=== PATIENT | female | born 1995 | race Caucasian/White ===

== ENCOUNTER 2017-03-31 15:37 | Emergency (ER) | payer OTHER ==
[2017-03-31 16:07] VITALS: BP 131/71
--- NOTE | 2017-03-31 17:40 | UC ---
Respiratory Complaint HPI - HPI Summary HPI Summary: 21 y/o female presents to the urgent care c/o persistent cough for the past month. Pt was [facility] at the [facility] 2X w/in the last 3 weeks. She was Rx augmentin, Zyrtec and Mucinex. She has finished all medications and she continues w/ the cough. She has Hx of recurrent bronchitis. She still has a productive cough w/ green phlegm and nasal congestion, mild fever on and off. Pt denies SOB, wheezing, chest pain, N/V/D. Pt has not other complains. - History of Current Complaint Chief Complaint: UCRespiratory Stated Complaint: COUGH,WHEEZING,CONGESTION Time Seen by Provider: 03/31/17 17:13 Hx Obtained From: Patient Hx Last Menstrual Period: 03/04/17 ?: No Onset/Duration: Gradual Onset, Lasting Weeks Severity Initially: Moderate Severity Currently: Moderate Pain Intensity: 0 Pain Scale Used: 0-10 Numeric Character: Cough: Nonproductive - green phlegm Alleviating Factors: Nothing Associated Signs And Symptoms: Positive: Fever - on and off, Nasal Congestion - green nasal disscharge. Negative: Dyspnea, Wheezing - Risk Factors Pulmonary Embolism Risk Factors: Negative Cardiac Risk Factors: Negative Pseudomonas Risk Factors: Negative Tuberculosis Risk Factors: Negative - Allergies/Home Medications Allergies/Adverse Reactions: Allergies Allergy/AdvReac Type Severity Reaction Status Date / Time No Known Allergies Allergy Verified 03/31/17 16:07 Home Medications: Home Medications Control* 03/31/17 [History] Cetirizine* [ZyrTEC 10 MG TAB*] 10 mg PO PRN 03/31/17 [History] PMH/Surg Hx/FS Hx/Imm Hx Previously Healthy: Yes Respiratory History: Bronchitis - Surgical History Surgical History: Yes Surgery Procedure, Year, and Place: ACL RECONSTRUCTION, TONSILLECTOMY - Family History Family History: Asthma - Social History Occupation: Employed Full-time Lives: With Family Alcohol Use: None Substance Use Type: None Smoking Status (MU): Never Smoked Tobacco Review of Systems Skin: Negative Eyes: Negative ENT: Nasal Discharge, Sinus Congestion - green discharge Respiratory: Cough - productive green discharge Cardiovascular: Negative Gastrointestinal: Negative Genitourinary: Negative Motor: Negative Neurovascular: Negative Musculoskeletal: Negative Neurological: Negative Psychological: Negative All Other Systems Reviewed And Are Negative: Yes Physical Exam Triage Information Reviewed: Yes Appearance: Well-Appearing, No Pain Distress, Well-Nourished Vital Signs: Initial Vital Signs Temp 98.7 F 03/31/17 16:01 Pulse 52 03/31/17 16:01 Resp 16 03/31/17 16:01 BP 131/71 03/31/17 16:01 Pulse Ox 100 03/31/17 16:01 Vital Signs Reviewed: Yes Eye Exam: Normal Eyes: Positive: Conjunctiva Clear - PERRLA, EOMI, fundi grossly normal ENT Exam: Normal ENT: Positive: Normal ENT inspection, Hearing grossly normal, Pharynx normal, Nasal congestion, Nasal drainage - edematous nasal mucosa w/ green discharge Dental Exam: Normal Neck exam: Normal Neck: Positive: Supple, Nontender, No Lymphadenopathy Respiratory Exam: Normal Respiratory: Positive: Chest non-tender, Normal breath sounds, No respiratory distress, Crackles - mild crackles in the postrior RT lung Cardiovascular Exam: Normal Cardiovascular: Positive: RRR, No Murmur, Pulses Normal, Brisk Capillary Refill Abdominal Exam: Normal Abdomen Description: Positive: Nontender, No Organomegaly, Soft. Negative: CVA Tenderness (R), CVA Tenderness (L) Bowel Sounds: Positive: Present Musculoskeletal Exam: Normal Musculoskeletal: Positive: Strength Intact, ROM Intact, No Edema Neurological Exam: Normal Psychological Exam: Normal Skin Exam: Normal UC Diagnostic Evaluation - Laboratory O2 Sat by Pulse Oximetry: 100 Respiratory Course/Dx - Course Course Of Treatment: 21 y/o female presents to the urgent care c/o persistent cough for the past month. Pt was [facility] at the [facility] 2X w/in the las 3 weeks. She was Rx augmentin, Zyrtec and Mucinex. She has finished all medications and she continues w/ the cough. She still has a productive cough w / green phlegm and nasal congestion, mild fever on and off. she has HX of recurrent bronchitis. Pt denies SOB, wheezing, chest pain, N/V/D. Hx obtained. PE abnormal findings:Pt w/ productive cough and mild crackles in the porsterior upper RT lung field. Pt Rx Z-hernando, albuterol and Flonase and advised to continue w/ the Zyrtec. Increase fluid intake, and f/u with her PCP for further management if symptoms do not improve or worsen,. Pt understood and agreed. - Differential Dx/Diagnosis Differential Diagnosis/HQI/PQRI: Asthma, Bronchitis, Influenza, Lower Resp Infection, Sinusitis Provider Diagnoses: 1-Bronchitis Discharge - Discharge Plan Condition: Stable Disposition: HOME Prescriptions: Albuterol HFA INHALER* [Ventolin HFA Inhaler*] 1 - 2 puff INH Q4H PRN #1 mdi PRN Reason: Cough Azithromyxin HERNANDO (NF) [Z-Hernando (Zithromax) 250 mg tabs #6] 2 tab PO .TODAY, THEN 1 DAILY #6 tab Fluticasone NASAL SPRAY 50MCG* [Flonase NASAL SPRAY 50MCG*] 2 spray BOTH NARES DAILY #1 btl guaiFENesin ER TAB [Mucinex*] 600 mg PO BID #20 tab.er Patient Education Materials: Acute Bronchitis (ED) Referrals: No Primary Care Phys,NOPCP [Primary Care Provider] - [facility] [place]] - If Needed Additional Instructions: Please take full course of antibiotic as directed to avoid recurrence or resistance. Please take the other mediation to alleviate symptoms, increase fluid intake and rest. If symptoms do not improve or worsen please return to the urgent care or f/u with your PCP for further evaluation and treatment.
== END 2017-03-31 17:40 | disposition home or self-care (01) ==
LOC: UCEAST 15:37
DX: J40 Bronchitis, not specified as acute or chronic (principal)
CPT/HCPCS: 99212; G0463